=== PATIENT | female | born 1965 | race African-American/Black ===

== ENCOUNTER 2020-01-01 14:52 | Emergency (ER) | payer OTHER, SELFPAY ==
--- NOTE | 2020-01-01 15:02 | ED.BACK ---
HPI - Back Pain/Injury General Chief Complaint: Back Pain/Injury Stated Complaint: Back pain Time Seen by Provider: 01/01/20 15:17 Source: patient and RN notes reviewed Mode of arrival: ambulatory Limitations: no limitations History of Present Illness HPI Narrative: 54-year-old female presents with concern for mid back pain. 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 She denies any acute trauma, falls. Denies bruising, swelling. Denies any weakness in any extremity, loss of bowel or bladder function, perianal anesthesia, fever. Reports she rested on Wednesday with improvement. Reports yesterday she got up to do housework and the pain came back. Reports today at work the pain worsened. Denies taking any medication for the pain. Reports using TENS unit and heating pad MD elicited complaint: back pain Related Data Allergies Allergy/AdvReac Type Severity Reaction Status Date / Time ibuprofen Allergy Hives Verified 01/01/20 15:26 Review of Systems Review of Systems: Narrative: CONSTITUTIONAL: Denies malaise, chills, sweats, or fever. CARDIOVASCULAR: Denies chest pain, palpitations, or edema. RESPIRATORY: Denies cough or dyspnea. GASTROINTESTINAL: Denies abdominal pain, nausea, vomiting, diarrhea GENITOURINARY: Denies dysuria or hematuria. SKIN: Denies bruising, redness MUSCULOSKELETAL: Reports minimal back pain NEUROLOGIC: Denies numbness, weakness, or headache. All systems reviewed & are unremarkable except as noted in HPI and below PMFSH Family History Family History (Updated 03/26/17 @ 11:14 by DOCTOR UNKNOWN) Other Asthma Family history of arthritis Social History Social History Smoking status: Never smoker Alcohol intake: never Gender identity (if verbalized by the patient): Female Comments At time of signature, agree with nursing past medical, surgical, social and family history. There is no relevant family history pertinent to the presenting complaint Exam Narrative: Exam Narrative: GENERAL: Well-appearing, well-nourished, and in no acute distress. HEAD: Normocephalic, atraumatic. EYES: PERRLA and EOMI. NECK: Supple. No lymphadenopathy. CHEST: Clear to auscultation. No respiratory distress. HEART: Regular rate and rhythm. Distal pulses palpable and equal, cap refill <3 seconds ABDOMEN: Soft, nontender, nondistended, normal active bowel sounds, no palpable or pulsatile masses. No CVA tenderness MUSCULOSKELETAL: Normal range of motion and strength in all extremities; 5/5 strength with hip flexion and extension, dorsiflexion and extension, knee flexion and extension, plantar flexion and extension. Normal sensation in dermatomal distributions with sensitivity to light touch and pain. No midline back tenderness to palpation. No paraspinal tenderness. Transfers from lying to sitting to standing. SKIN: Warm, dry, no rash. No ecchymosis, erythema, open wounds to back. NEURO: No focal deficits. Alert and oriented x3. Reflexes intact. Normal gait. PSYCH: Normal mood and affect Course Course Emergency Course: Patient is aware of diagnosis, understands and agrees to treatment plan. Anticipatory guidance given. Patient agrees to follow-up as directed and is aware of reasons to seek care at the emergency department. Portions of this record may have been created with voice recognition software Vital Signs Vital signs: Vital Signs Temperature 99.9 F H 01/01/20 15:10 Pulse Rate 79 01/01/20 15:10 Respiratory Rate 18 01/01/20 15:10 Blood Pressure 134/88 01/01/20 15:10 Pulse Oximetry 100 01/01/20 15:10 Temperature 99.9 F H 01/01/20 15:10 Pulse Rate 79 01/01/20 15:10 Respiratory Rate 18 01/01/20 15:10 Blood Pressure 134/88 01/01/20 15:10 Pulse Oximetry 100 01/01/20 15:10 Reviewed. MDM - Back Pain/Injury MDM Narrative Medical decision taylor
[2020-01-01 15:10] VITALS: BP 134/88; PULSE 79; RESP 18; TEMP 37.7; O2SAT 100
== END 2020-01-01 15:30 | disposition home or self-care (01) ==
PROVIDERS: Emergency Provider Nurse Practitioner
DX: M54.5 Low back pain (principal)
CPT/HCPCS: 99203; G0463

== ENCOUNTER 2022-12-16 08:52 | Emergency (ER) | payer OTHER, SELFPAY ==
--- NOTE | ~2022-12-16 | XR_ITS ---
XR chest 2V DATE: 12/16/2022 09:33 INDICATION: Shortness of breath, wheezing. Asthma attack. TECHNIQUE: PA and lateral views COMPARISON: None FINDINGS: Mild cardiomegaly. Mild thoracic aortic unfolding. No hilar or mediastinal enlargement. No pulmonary infiltrate or consolidation, pleural effusion or pulmonary vascular congestion or pneumo thorax is detected. IMPRESSION: Mild cardiomegaly No active pulmonary disease Reviewed, dictated and finalized at location [facility].
[2022-12-16 08:53] VITALS: BP 153/87; PULSE 85; RESP 20; O2SAT 98
[2022-12-16 08:59] VITALS: TEMP 36.6
[2022-12-16 09:09] VITALS: O2SAT 98
--- NOTE | 2022-12-16 09:22 | ED.ASTHMA ---
HPI - Asthma General Chief Complaint: Asthma Stated Complaint: asthma Time Seen by Provider: 12/16/22 09:09 Source: patient Mode of arrival: EMS Limitations: no limitations History of Present Illness HPI Narrative: This is a 57-year-old female that presents to the emergency department for shortness of breath. Reports she stepped into the cooler at work and felt tightness in her chest. She continued to have worsening wheezing and she did not have her inhaler with her. EMS was called. She was given a nebulizer treatment and steroid in route with relief. Reports she is now feeling much better. Denies fever, cough, or current chest pain or shortness of breath. Related Data Allergies Allergy/AdvReac Type Severity Reaction Status Date / Time ibuprofen Allergy Hives Verified 10/27/22 13:52 Review of Systems Review of Systems: CONSTITUTIONAL: Denies fever CARDIOVASCULAR: Denies chest pain, or edema. RESPIRATORY: Denies cough All systems reviewed & are unremarkable except as noted in HPI and below PMFSH Past Medical History Medical History Asthma Brachial neuropathic pain Cervical stenosis of spinal canal Dietary counseling and surveillance (04/13/17) Other spondylosis with radiculopathy, lumbar region Surgical History Surgical History H/O laminectomy L5-S1 Family History Family History Mother Asthma Diabetes mellitus Hypertension Heart disease Sibling Asthma Father Diabetes mellitus Hypertension Heart disease Other Family history of arthritis Social History Social History Social History: Single , Smoking status: Never smoker Second hand tobacco smoke exposure: No Alcohol intake: never Substance use: never Substance use type: does not use Living arrangements: with family Occupation/Education: occupation Gender identity (if verbalized by the patient): Female Sexual Orientation (if Verbalized by the Patient): Straight or Heterosexual Exam Narrative: GENERAL: Well-appearing, well-nourished, and in no acute distress. HEAD: Normocephalic, atraumatic. EYES: EOMI. CHEST: Clear to auscultation. No respiratory distress. No wheezes rales or rhonchi HEART: Regular rate and rhythm. No murmur heard. Normal peripheral pulses. EXTREMITIES: Normal range of motion. No edema. SKIN: Warm, dry, no rash. NEURO: No focal deficits. Alert and oriented x3. PSYCH: Normal mood and affect Course Course Emergency Course: Patient updated on workup and agrees with plan of care Vital Signs Vital signs: Vital Signs Pulse Rate 85 12/16/22 08:53 Respiratory Rate 20 12/16/22 08:53 Blood Pressure 153/87 H 12/16/22 08:53 Pulse Oximetry 98 12/16/22 08:53 Oxygen Delivery Room Air 12/16/22 08:53 Temperature 97.8 F 12/16/22 08:59 Pulse Rate 85 12/16/22 08:53 Respiratory Rate 20 12/16/22 08:53 Blood Pressure 153/87 H 12/16/22 08:53 Pulse Oximetry 98 12/16/22 09:09 Oxygen Delivery Room Air 12/16/22 09:09 MDM - Asthma MDM Narrative Medical decision making narrative: Patient presents to the emergency department with shortness of breath and wheezing. She was given a nebulizer treatment and a dose of Solu-Medrol in route via EMS. Upon presentation in the ED her lungs are now clear and she is feeling better. Oxygen saturation is normal on room air. She is afebrile and nontoxic-appearing. Chest x-ray without active pulmonary disease. Patient was updated on work-up. Instructed to continue albuterol as needed for shortness of breath or wheezing. She is to follow-up with her primary care provider. She was given warnings to return to the ER Differential Diagnosis Differential diagnosis: Likely Acute exacerbation and Pneumonia Imaging Data Radiologist's
[2022-12-16 10:05] VITALS: PULSE 84; RESP 20; O2SAT 98
== END 2022-12-16 10:07 | disposition home or self-care (01) ==
PROVIDERS: Emergency Provider Physician Assistant; PCP Family Medicine
DX: R06.2 Wheezing (principal); J45.909 Unspecified asthma, uncomplicated; Z79.51 Long term (current) use of inhaled steroids
CPT/HCPCS: 71046; 99283

== ENCOUNTER 2023-04-19 10:50 | Outpatient (CLI) | payer OTHER, SELFPAY ==
--- NOTE | ~2023-04-19 | CT_ITS ---
EXAMINATION: CT abdomen pelvis wo con DATE: 04/19/2023 11:15 INDICATION: Abdominal and pelvic swelling TECHNIQUE: Computed tomography (CT) of the abdomen and pelvis was performed without intravenous contr ast. Automated exposure control and iterative reconstruction technique were employed. Exam dose: 516 .01 mGy-cm total exam DLP. COMPARISON: None. FINDINGS: No infiltrate or consolidation at the lung bases. Mild cardiomegaly. There is trace pericar dial fluid. Very small sliding hiatal hernia. The liver, gallbladder, bile ducts, pancreas, pancreatic duct and spleen are unremarkable. Normal morphology of the adrenal glands. No renal mass lesion or urinary tract calculus or hydroureteronephrosis. Normal caliber and mild atherosclerotic calcification of the abdominal aorta. There are some nonenlar ged mesenteric and right lower quadrant lymph nodes. No intraperitoneal or retroperitoneal or pelvic mass lesion or adenopathy or ascites is noted. The uterus, adnexal areas and urinary bladder are unre markable. Normal appendix. Diverticulosis of the left colon; no CT evidence of diverticulitis. No bowel obstruc tion or intraperitoneal free air. Small fat-containing umbilical hernia. Status post posterior and interbody spinal fusion at L5-S1. IMPRESSION: Very small sliding hiatal hernia Normal appendix Diverticulosis of the colon; no evidence of diverticulitis Status post posterior and interbody spinal fusion at L5-S1 Reviewed, dictated and finalized at [facility]. Reviewed, dictated and finalized at location [facility].
== END 2023-04-19 10:51 | disposition home or self-care (01) ==
PROVIDERS: PCP Family Medicine; Visit Provider Surgery
DX: R19.00 Intra-abdominal and pelvic swelling, mass and lump, unspecified site (principal); K44.9 Diaphragmatic hernia without obstruction or gangrene; K57.30 Diverticulosis of large intestine without perforation or abscess without bleeding; Z98.1 Arthrodesis status
CPT/HCPCS: 74176

== ENCOUNTER → 2023-06-08 09:37 | Outpatient (CLI) | payer OTHER, SELFPAY ==
--- NOTE | ~2023-06-08 | XR_ITS ---
Left Knee Technique: AP, lateral, and oblique views were obtained. Clinical History: Pain Findings: No fracture or dislocation is seen. Osseous alignment is anatomic. Minimal patellar spurrin g noted. Soft tissues are unremarkable. No joint effusion is seen. Impression: Minimal patellar spurring. Reviewed, dictated and finalized at location . Impression: Minimal patellar spurring.
== END ==
PROVIDERS: PCP Family Medicine; Visit Provider Physician Assistant
DX: M23.8X2 Other internal derangements of left knee (principal); M25.762 Osteophyte, left knee
CPT/HCPCS: 73564

== ENCOUNTER → 2023-08-03 08:56 | Outpatient (CLI) | payer OTHER, SELFPAY ==
--- NOTE | ~2023-08-03 | MR_ITS ---
MRI of the left knee Clinical history: Pain Technique: Coronal proton density and proton density-weighted images, sagittal proton-density and T2 fat-sat images, and axial proton-density fat-saturated images were acquired. Findings: Anterior and posterior cruciate ligaments are intact. Medial collateral ligament and the la teral collateral ligament complex are intact. Popliteus tendon is intact. No definite meniscal tear seen. Medial and lateral menisci appear intact. Articular cartilage in the medial lateral compartments is well preserved. There is mild chondral lucina osmany the patellofemoral compartment. Minimal tricompartmental osteophytes are present. Extensor mechanism is intact. No significant joint effusion or Reyes's cyst. Impression: Minimal tricompartmental degenerative change. Reviewed, dictated and finalized at [facility]. [employer]ICER [employer] Impression: Minimal tricompartmental degenerative change.
== END ==
PROVIDERS: PCP Family Medicine; Visit Provider Nurse Practitioner Family
DX: M17.12 Unilateral primary osteoarthritis, left knee (principal)
CPT/HCPCS: 73721

== ENCOUNTER → 2023-09-02 15:24 | Outpatient (CLI) | payer OTHER, SELFPAY ==
--- NOTE | ~2023-09-02 | XR_ITS ---
EXAMINATION: XR lumbar spine min 4V DATE: 09/02/2023 16:32 INDICATION: Lumbar radiculopathy. TECHNIQUE: 5 views of lumbar spine standing including flexion and extension views were obtained. COMPARISON: Lumbar spine MRI 09/02/2023 FINDINGS: Bone alignment is normal. Vertebral body heights are normal. Intervertebral disc heights ar e normal. There are changes of anterior and posterior fusion procedures at L5-S1 with interbody devic es and pedicle screws. The spine is hypomobile with flexion and extension. There is multilevel facet joint osteoarthritis, severe in lower lumbar spine. IMPRESSION: 1. Mild lumbar spondylosis. 2. Anterior and posterior fusion procedures at L5-S1. Reviewed, dictated and finalized at location E. TRICAL CONTACTS ADJUSTER
--- NOTE | ~2023-09-02 | MR_ITS ---
EXAMINATION: MR lumbar spine wo con DATE: 09/02/2023 16:14 INDICATION: Low back pain. Lumbar radiculopathy. TECHNIQUE: Magnetic resonance imaging (MRI) of the lumbar spine was performed without intravenous con trast. COMPARISON: Lumbar spine radiographs 09/02/2023 FINDINGS: Bone alignment is normal. Vertebral body heights are normal. Intervertebral disc heights ar e normal. There are changes of anterior and posterior fusion procedures at L5-S1 with interbody devic es and pedicle screws. The distal spinal cord signal intensity is normal. The conus medullaris is at L1. The following disc levels are specifically discussed: L1-L2: The disc does not extend beyond the endplate margin. There is mild bilateral facet joint osteo arthritis. There is no neural foraminal stenosis. There is no central canal stenosis. L2-L3: The disc is mildly bulging. There is severe bilateral facet joint osteoarthritis. There is mil d bilateral neural foraminal stenosis. There is no central canal stenosis. L3-L4: There is a left foraminal protrusion. There is severe bilateral facet joint osteoarthritis. Th ere is mild left neural foraminal stenosis. There is no central canal stenosis. L4-L5: The disc does not extend beyond the endplate margin. There is severe bilateral facet joint ost eoarthritis. There is no neural foraminal stenosis. There is no central canal stenosis. L5-S1: There is severe bilateral facet joint osteoarthritis. There is no neural foraminal stenosis. T here is no central canal stenosis. IMPRESSION: 1. Mild lumbar spondylosis. 2. Anterior and posterior fusion procedures at L5-S1. Reviewed, dictated and finalized at location E. NE EMISSION TECHNICIAN
== END ==
PROVIDERS: PCP Family Medicine; Visit Provider Neurological Surgery
DX: M54.50 Low back pain, unspecified (principal); M47.26 Other spondylosis with radiculopathy, lumbar region; Z98.1 Arthrodesis status
CPT/HCPCS: 72110; 72148

== ENCOUNTER → 2023-09-22 09:39 | Outpatient (CLI) | payer OTHER, SELFPAY ==
--- NOTE | ~2023-09-22 | CT_ITS ---
EXAMINATION: CT cervical spine wo con DATE: 09/22/2023 09:54 INDICATION: Cervical myelopathy. TECHNIQUE: Computed tomography (CT) of the cervical spine was performed without intravenous contrast. Automated exposure control and iterative reconstruction technique were employed. The dose-length pro duct was 240.27 mGy-cm. COMPARISON: None FINDINGS: There is 5 degrees dextrocurvature of cervical spine. There is 2 mm retrolisthesis of C5 on C6. Vertebral body heights are normal. There is mildly decreased disc height at C4-C5 and severely d ecreased disc height at C5-C6. The following disc levels are specifically discussed: C2-C3: There is moderate right and mild left uncovertebral joint osteoarthritis. There is mild bilate ral facet joint osteoarthritis. There is mild right neural foraminal stenosis. There is no central ca nal stenosis. C3-C4: There is severe right and mild left uncovertebral joint osteoarthritis. There is severe bilate ral facet joint osteoarthritis. There is mild bilateral neural foraminal stenosis. There is mild cent ral canal stenosis. C4-C5: There is moderate right and severe left uncovertebral joint osteoarthritis. There is severe bi lateral facet joint osteoarthritis. There is mild bilateral neural foraminal stenosis. There is mild central canal stenosis. C5-C6: There is severe bilateral uncovertebral joint osteoarthritis. There is severe bilateral facet joint osteoarthritis. There is mild bilateral neural foraminal stenosis. There is mild central canal stenosis. C6-C7: There is moderate right and severe left uncovertebral joint osteoarthritis. There is moderate right and severe left facet joint osteoarthritis. There is mild bilateral neural foraminal stenosis. There is mild central canal stenosis. C7-T1: There is no uncovertebral joint osteoarthritis. There is severe bilateral facet joint osteoart hritis. There is mild bilateral neural foraminal stenosis. There is no central canal stenosis. IMPRESSION: 1. Severe cervical spondylosis. Reviewed, dictated and finalized at location E. OARD TEACHER
== END ==
PROVIDERS: PCP Family Medicine; Visit Provider Neurological Surgery
DX: G95.89 Other specified diseases of spinal cord (principal); M43.02 Spondylolysis, cervical region
CPT/HCPCS: 72125